=== PATIENT | male | born 1980 | race Caucasian/White ===

== ENCOUNTER 2021-03-15 21:31 | Emergency (ER) | payer OTHER ==
[2021-03-15 23:48] LABS: ALKALINE PHOSHATASE 66 U/L (46-116); ALT 27 U/L (16-63); AST 15 U/L (15-37); BILIRUBIN - DIRECT <0.05 mg/dL (0.00-0.20); BILIRUBIN - TOTAL 0.2 mg/dL (0.2-1.0); GLOBULIN (CALCULATION) 3.3 g/dL; TOTAL PROTEIN 7.3 g/dL (6.4-8.2)
[2021-03-17 03:08] LABS: HIV SCREEN 4TH GENERATION WRFX Non Reactive (Non Reactive)
[2021-03-17 06:08] LABS: HBSAG SCREEN Negative (Negative); HEP A AB, IGM Negative (Negative); HEP B CORE AB, IGM Negative (Negative); HEP C VIRUS AB <0.1 (0.0-0.9)
[2021-03-17 12:10] LABS: HEPATITIS C QUANTITATION HCV Not Detected IU/mL (.)
== END 2021-03-15 23:45 | disposition home or self-care (01) ==
LOC: FER 21:31
PROVIDERS: Nurse Practitioner Family
DX: S91.331A Puncture wound without foreign body, right foot, initial encounter (principal); W46.1XXA Contact with contaminated hypodermic needle, initial encounter; Y92.89 Other specified places as the place of occurrence of the external cause
CPT/HCPCS: 36415; 80074; 80076; 86704; 86803; 87340; 87389; 87522; 90371; 90471; 90744; 99283